=== PATIENT | male | born 1970 | race Two or more races ===

== ENCOUNTER 2024-06-12 11:15 | Day surgery (SDC) | payer BC, SELFPAY ==
--- NOTE | 2024-06-10 07:00 | EKG_ITS ---
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
[2024-06-10 07:12] VITALS: BMI 33.5
[2024-06-12] VITALS (9 sets, daily range): BP systolic 115–134; BP diastolic 70–91; PULSE 67–77; RESP 12–20; TEMP 36.4–36.8; O2SAT 94–97; BMI 33.0
[2024-06-12] MEDS: OXYMETAZOLINE NAS SPRY 0.05% 15 ML BTL NASAL (12:16)
--- NOTE | 2024-06-12 13:51 | PD.SUROPNT ---
Date of Procedure 06/12/24 Pre Op Diagnosis Nasal septal deviation with obstruction Bilateral inferior turbinate hypertrophy Post Op Diagnosis Nasal septal deviation with obstruction Bilateral inferior turbinate hypertrophy Procedure Intranasal septoplasty Bilateral submucous resection of the inferior turbinates Findings Grade 3 septal deviation to the left with spurring posteriorly and along the floor. Enlarged inferior turbinates. Procedure Description Indications: This is a 53-year-old male with chronic nasal congestion with the above findings. Treatment options were discussed as well as surgical risk of bleeding infection nasal deformity potential need for further surgery. He understood this and wished to proceed. Patient was transferred to the operative suite where he was anesthetized and intubated per LMA sterilely draped. Timeout was performed. Nasal septum as well as the inferior turbinates were injected with 1% lidocaine with 1 100,000 dilution epinephrine. Approximately 5 cc total were used. A caudal rim incision was made on the left side of the septum and a mucosal flap elevated off the septal cartilage and bone. Perpendicular plate was from the quadrangular cartilage with a freer elevator and mucosal flap elevated off the right side. Shweta's forceps and double-action scissors were then used to remove the deviated perpendicular plate. The spur posteriorly was fractured over the caudal elevator and removed a Shweta forceps. The spur anteriorly was cartilaginous portion of this was removed. The cartilage was then repositioned in the midline and sutured in place with interrupted 4-0 Vicryl suture. The mucosal flaps and rim incision were then closed with 4-0 plain gut suture. The left inferior turbinate was reduced with the 2.9 mm turbinate shaver and a submucosal plane. Dissection was performed on insertion and as well as withdrawal. Similar procedure was formed on the right side. Entry sites were then cauterized with suction cautery. The patient was awakened and taken recovery room in stable condition Anesthesia other (General Per LMA) Pathology / specimen None Estimated Blood Loss 5 Surgeon Remy Quispe DO Surgical Staff Operation Date: 06/12/24 13:15 Case Staff Anesthesiologist: Rios De La Cruz
--- NOTE | 2024-06-12 14:16 | SUR.PHASEI ---
1344: Pt received in [facility] via [facility]. Report from Ha LLOYD and Dr. De La Cruz. Pt obtunded. Resp even, unlabored. VS stable. Dressing to nose dry, clean, intact. 1410: Pt resting with no complaints voiced. Resp even, unlabored. VS stable. Dressing remains dry, clean, intact. Denies pain.
--- NOTE | 2024-06-12 16:51 | SUR.PHASEII ---
1430: Pt more awake, alert. Resp even, unlabored. VS stable. Nasal bridle has scant amount of bleeding on gauze. 1500: Pt fully awake, oriented x3. VS stable. Dressing continues to have scant amount of bleeding on gauze. Denies pain. Pt dressed and assisted to restroom. Ambulation steady. Pt and stated understanding of discharge instructions. Pt also instructed to picking supervisor his prescriptions at his pharmacy. Pt discharged from [facility] in stable condition.
== END 2024-06-12 15:00 | disposition home or self-care (01) ==
PROVIDERS: PCP Physician Assistant; Referring Provider Otolaryngology; Visit Provider Otolaryngology
PROC: (CPT 30520; principal; 2024-06-12 13:00)
DX: J34.3 Hypertrophy of nasal turbinates (principal); J34.2 Deviated nasal septum; Z01.810 Encounter for preprocedural cardiovascular examination
CPT/HCPCS: 30520; 30140; 93005; A4217; A4649; J0690; J1100; J2371; J2704; J2765; J3010; J3490; J7040; A9270